=== PATIENT | female | born 1955 | race Two or more races ===

== ENCOUNTER 2018-04-11 12:17 | Inpatient (IN) | payer MEDICARE, MEDICAID ==
[~2018-04-11] VITALS: Ht 147.3 cm; Wt 40.6 kg
[~2018-04-11 12:17] MED LIST: CHOL200010 PO; ESOM40CA39 PO; FOLI1TAB6 PO; LEUC5TAB PO; MELO1TAB56 PO; METH2.5T3 PO; OXYC7.5T88; SULF-98 PO
[2018-04-11 13:03] LABS: Basophils # (auto) 0 uL; Eosinophils # (auto) 0 uL; Lymphocytes # (auto) 0.7 uL
[2018-04-11 13:05] LABS: Basophils % (auto) 0.1 % (0.0-2.0); Hematocrit 34.8 % (36.0-46.0); Hemoglobin 11.1 g/dL (12.2-16.2); Lymphocytes % (auto) 4.5 % (10.0-50.0); Mean Corpuscular Hemoglobin 24.4 pg (28.0-32.0); Mean Corpuscular Hgb Conc. 31.9 g/dL (32.0-36.0); Mean Corpuscular Volume 76.4 fL (80.0-100.0); Monocytes # (auto) 0.7 uL; Monocytes % (auto) 4.6 % (0.0-12.0); Neutrophils # (auto) 13.9 uL; Neutrophils % (auto) 90.8 % (37.0-80.0); Platelet Count (auto) 413 10^3/uL (140-450); Red Blood Cells 4.56 10^6/uL (4.0-5.20); Red Cell Distribution Width 17.4 % (11.8-14.3); White Blood Cell 15.3 10^3/uL (4.4-10.8)
[2018-04-11] MEDS ORDERED: SODIUM CHLORIDE 0.9% 1,000 ML IV ONE (13:06)
[2018-04-11 13:26] LABS: Albumin 2.6 g/dL (3.4-5.0); BUN/Creatinine Ratio 40.7; Calcium 7.9 mg/dL (8.5-10.1); Potassium 3.8 mmol/L (3.5-5.1)
[2018-04-11 13:29] LABS: Bilirubin, Total 0.3 mg/dL (0.2-1.0); Total Protein 7.5 g/dL (6.4-8.2)
[2018-04-11] MEDS ORDERED: metroNIDAZOLE 500MG/100ML 100 ML IV ONE (14:45)
[2018-04-11] MEDS ORDERED: PIPERACILLIN-TAZOB 2.25GM 50 ML IV ONE (14:45)
[2018-04-11] MEDS ORDERED: NITROGLYCERIN 0.4 MG SL TAB SL PRN (15:00)
[2018-04-11] MEDS ORDERED: DEXTROSE (50%) 50ML SYRG IV PRN (15:00)
[2018-04-11] MEDS ORDERED: LORazepam 0.5 MG TAB PO PRN (15:00)
[2018-04-11] MEDS ORDERED: TEMAZEPAM 15 MG CAP PO PRN (15:00)
[2018-04-11] MEDS ORDERED: cefTRIAXone 1GM/10ml IVPUSH 10 ML IV ONE (15:00)
[2018-04-11] MEDS ORDERED: ALBUTEROL SULF 2.5 MG/0.5ML(0.5%) NEB SOLN NEB PRN (15:00)
[2018-04-11] MEDS ORDERED: ACETAMINOPHEN 500 MG TAB PO PRN (15:00)
[2018-04-11] MEDS ORDERED: HYDROcodone-ACET 5/325MG TAB PO PRN (15:00)
[2018-04-11] MEDS ORDERED: MORPHINE SULF INJ 2 MG/ML SYRINGE 1ML IV PRN ×2 (15:00)
[2018-04-11] MEDS: SODIUM CHLORIDE 0.9% 1,000 ML IV SCH (15:49)
[2018-04-11] MEDS: ACCU-CHEK COMFORT CURVE STRIP VI SCH ×2 (15:49→20:25)
[2018-04-11] MEDS ORDERED: AZITHROMYCIN 500MG/ 250ML 250 ML IV SCH (16:00)
[2018-04-11 17:00] VITALS: BP 125/52
[2018-04-11 17:25] VITALS: BP 182/74
[2018-04-11 18:00] VITALS: BP 125/52
[2018-04-11] MEDS ORDERED: AMLO5TAB2 PO (18:05)
[2018-04-11] MEDS ORDERED: PRE5T PO (18:05)
[2018-04-11] MEDS ORDERED: MULT-424 OR (18:05)
[2018-04-11] MEDS: IPRATROPIUM BROM 0.5 MG/2.5ML INH SOL NEB SCH (18:09)
[2018-04-11] MEDS: ALBUTEROL SULF 2.5 MG/0.5ML(0.5%) NEB SOLN NEB SCH (18:09)
[2018-04-11 22:00] VITALS: BP 148/78
[2018-04-11] MEDS ORDERED: SULFAMETHOX W/TRIMETH(800/160MG) DS TAB PO SCH (22:00)
[2018-04-11] MEDS: metroNIDAZOLE 500MG/100ML 100 ML IV SCH (22:02)
[2018-04-12] MEDS: IPRATROPIUM BROM 0.5 MG/2.5ML INH SOL NEB SCH ×4 (00:12→19:33)
[2018-04-12] MEDS: ALBUTEROL SULF 2.5 MG/0.5ML(0.5%) NEB SOLN NEB SCH ×4 (00:12→19:33)
[2018-04-12] MEDS: SODIUM CHLORIDE 0.9% 1,000 ML IV SCH ×3 (01:11→20:56)
[2018-04-12] MEDS: HYDROcodone-ACET 10/325MG TAB PO PRN ×2 (02:13→16:38)
[2018-04-12] MEDS: ACCU-CHEK COMFORT CURVE STRIP VI SCH ×6 (04:00→20:00)
[2018-04-12] MEDS: metroNIDAZOLE 500MG/100ML 100 ML IV SCH ×3 (04:20→18:26)
[2018-04-12 05:00] VITALS: BP 116/56
[2018-04-12 06:31] LABS: Basophils # (auto) 0 uL; Lymphocytes # (auto) 0.6 uL; Monocytes # (auto) 0.7 uL; Neutrophils # (auto) 8.6 uL; Red Cell Distribution Width 17.1 % (11.8-14.3)
[2018-04-12 06:33] LABS: Basophils % (auto) 0.3 % (0.0-2.0); Eosinophils # (auto) 0.1 uL; Eosinophils % (auto) 0.6 % (0.0-7.0); Hematocrit 30.2 % (36.0-46.0); Hemoglobin 9.9 g/dL (12.2-16.2); Lymphocytes % (auto) 6.1 % (10.0-50.0); Mean Corpuscular Hemoglobin 25.2 pg (28.0-32.0); Mean Corpuscular Hgb Conc. 32.9 g/dL (32.0-36.0); Mean Corpuscular Volume 76.6 fL (80.0-100.0); Monocytes % (auto) 7.1 % (0.0-12.0); Neutrophils % (auto) 85.9 % (37.0-80.0); Platelet Count (auto) 349 10^3/uL (140-450); Red Blood Cells 3.94 10^6/uL (4.0-5.20)
[2018-04-12 07:03] LABS: Alanine Aminotransferase 12 U/L (13-56); Alkaline Phosphatase 53 U/L (45-117); Anion Gap 11 (5-15); Aspartate Aminotransferase 17 U/L (15-37); BUN/Creatinine Ratio 46.7; Bilirubin, Total 0.4 mg/dL (0.2-1.0); Blood Urea Nitrogen 7 mg/dL (7-18); Calcium 7.3 mg/dL (8.5-10.1); Carbon Dioxide 20 mmol/L (21-32); Chloride 107 mmol/L (98-107); GFR African American 649 mL/min; GFR Non-African American 537 mL/min; Glucose 76 mg/dL (74-106); Sodium 138 mmol/L (136-145); Total Protein 5.8 g/dL (6.4-8.2)
[2018-04-12 07:13] LABS: Potassium 2.9 mmol/L (3.5-5.1)
[2018-04-12] MEDS ORDERED: POTASSIUM CHL 10% (20 MEQ/15ML) 15ml ORAL SOLN PO ONE (07:45)
[2018-04-12 08:00] VITALS: BP 113/60
[2018-04-12] MEDS: cefTRIAXone 1GM/10ml IVPUSH 10 ML IV SCH (08:52)
[2018-04-12] MEDS: PROMETHAZINE HCL 25 MG/ML 1ML IV PRN (09:05)
[2018-04-12] MEDS: AZITHROMYCIN 500MG/ 250ML 250 ML IV SCH (09:30)
[2018-04-12] MEDS: ENOXAPARIN SOD 40 MG/0.4 ML SYRINGE SC SCH ×2 (09:31→10:00)
[2018-04-12] MEDS: PANTOPRAZOLE 40 MG TAB PO SCH (09:31)
[2018-04-12 12:00] VITALS: BP 113/64
[2018-04-12 12:57] LABS: Urine Bacteria NONE SEEN /hpf (None Seen); Urine Blood Negative /uL (Negative); Urine Mucus FEW (None Seen); Urine Specific Gravity 1.011 (1.001-1.035); Urine WBC 7 /hpf (0 - 5)
[2018-04-12 17:00] VITALS: BP 137/65
[2018-04-12 22:06] VITALS: BP 132/93
[2018-04-13] MEDS: metroNIDAZOLE 500MG/100ML 100 ML IV SCH ×4 (00:16→18:00)
[2018-04-13] MEDS: ACCU-CHEK COMFORT CURVE STRIP VI SCH ×6 (03:53→20:00)
[2018-04-13 05:18] VITALS: BP 139/71
[2018-04-13 06:41] LABS: Basophils # (auto) 0 uL; Basophils % (auto) 0.2 % (0.0-2.0); Eosinophils # (auto) 0.1 uL; Eosinophils % (auto) 0.6 % (0.0-7.0); Hemoglobin 8.7 g/dL (12.2-16.2); Lymphocytes # (auto) 0.4 uL; Monocytes # (auto) 0.5 uL; Neutrophils # (auto) 8.4 uL; Red Cell Distribution Width 17.4 % (11.8-14.3)
[2018-04-13 06:43] LABS: Hematocrit 26.8 % (36.0-46.0); Lymphocytes % (auto) 4.7 % (10.0-50.0); Mean Corpuscular Hemoglobin 25.3 pg (28.0-32.0); Mean Corpuscular Hgb Conc. 32.6 g/dL (32.0-36.0); Mean Corpuscular Volume 77.7 fL (80.0-100.0); Monocytes % (auto) 5.2 % (0.0-12.0); Neutrophils % (auto) 89.3 % (37.0-80.0); Platelet Count (auto) 320 10^3/uL (140-450); Red Blood Cells 3.45 10^6/uL (4.0-5.20); White Blood Cell 9.4 10^3/uL (4.4-10.8)
[2018-04-13] MEDS: SODIUM CHLORIDE 0.9% 1,000 ML IV SCH ×2 (06:53→16:59)
[2018-04-13 06:58] LABS: Anion Gap 10 (5-15); Blood Urea Nitrogen 1 mg/dL (7-18); Carbon Dioxide 19 mmol/L (21-32); Chloride 111 mmol/L (98-107); GFR African American 466 mL/min; Glucose 154 mg/dL (74-106); Sodium 140 mmol/L (136-145)
[2018-04-13 06:59] LABS: Albumin 1.6 g/dL (3.4-5.0); Alkaline Phosphatase 50 U/L (45-117); Bilirubin, Total 0.2 mg/dL (0.2-1.0); Calcium 6.1 mg/dL (8.5-10.1); GFR Non-African American 385 mL/min; Total Protein 4.8 g/dL (6.4-8.2)
[2018-04-13 07:07] LABS: Aspartate Aminotransferase 6 U/L (15-37)
[2018-04-13] MEDS: ALBUTEROL SULF 2.5 MG/0.5ML(0.5%) NEB SOLN NEB SCH ×4 (07:12→19:00)
[2018-04-13] MEDS: IPRATROPIUM BROM 0.5 MG/2.5ML INH SOL NEB SCH ×4 (07:12→19:00)
[2018-04-13 07:24] LABS: Alanine Aminotransferase < 6 U/L (13-56); Potassium 2.5 mmol/L (3.5-5.1)
[2018-04-13 08:37] VITALS: BP 130/89
[2018-04-13] MEDS: cefTRIAXone 1GM/10ml IVPUSH 10 ML IV SCH (09:00)
[2018-04-13] MEDS: ENOXAPARIN SOD 40 MG/0.4 ML SYRINGE SC SCH (10:00)
[2018-04-13] MEDS: PANTOPRAZOLE 40 MG TAB PO SCH (10:00)
[2018-04-13] MEDS: AZITHROMYCIN 500MG/ 250ML 250 ML IV SCH (10:00)
[2018-04-13] MEDS ORDERED: POTASSIUM CHL 10% (20 MEQ/15ML) 15ml ORAL SOLN PO ONE (10:30)
[2018-04-13] MEDS: HYDROcodone-ACET 10/325MG TAB PO PRN (10:30)
[2018-04-13] MEDS: VANCOMYCIN HCL 125MG/5ML ORAL SOL PO SCH ×2 (12:00→18:00)
[2018-04-13] MEDS: BOOST PLUS 8 ounce PO SCH ×2 (12:00→18:00)
[2018-04-13 13:00] VITALS: BP 130/89
[2018-04-13] MEDS ORDERED: MULTIPLE VITAMINS W/ MINERALS TAB PO SCH (16:00)
[2018-04-13] MEDS: MULTIPLE VITAMINS W/ MINERALS TAB PO SCH (18:00)
[2018-04-13] MEDS: PRO-STAT 64 30ML PO SCH (18:00)
[2018-04-13 22:00] VITALS: BP 144/78
[2018-04-13] MEDS: ASCORBIC ACID 500 MG TAB PO SCH (23:07)
[2018-04-13] MEDS: POTASSIUM CHL 10% (20 MEQ/15ML) 15ml ORAL SOLN PO SCH (23:07)
[2018-04-14] VITALS (7 sets, daily range): BP systolic 104–149; BP diastolic 50–74
[2018-04-14] MEDS: HYDROcodone-ACET 10/325MG TAB PO PRN ×3 (00:23→18:30)
[2018-04-14] MEDS: VANCOMYCIN HCL 125MG/5ML ORAL SOL PO SCH ×2 (00:24→06:32)
[2018-04-14] MEDS: metroNIDAZOLE 500MG/100ML 100 ML IV SCH ×4 (00:24→18:14)
[2018-04-14] MEDS: IPRATROPIUM BROM 0.5 MG/2.5ML INH SOL NEB SCH ×4 (00:51→18:51)
[2018-04-14] MEDS: ALBUTEROL SULF 2.5 MG/0.5ML(0.5%) NEB SOLN NEB SCH ×4 (00:51→18:52)
[2018-04-14] MEDS: SODIUM CHLORIDE 0.9% 1,000 ML IV SCH ×2 (02:53→13:26)
[2018-04-14] MEDS: ACCU-CHEK COMFORT CURVE STRIP VI SCH ×6 (04:00→20:00)
[2018-04-14] MEDS ORDERED: ETOMIDATE (2MG/ML) 20ML VIAL IV ONE (05:26)
[2018-04-14] MEDS ORDERED: ROCURONIUM 10MG/ML 10ML VIAL IV ONE (05:27)
[2018-04-14] MEDS ORDERED: SUCCINYLCHOLINE CHLORIDE 20 MG/ML 10ML VIAL IV ONE (05:27)
[2018-04-14 05:33] LABS: Basophils # (auto) 0 uL; Eosinophils # (auto) 0.1 uL; Mean Corpuscular Hgb Conc. 33.5 g/dL (32.0-36.0); Monocytes # (auto) 0.4 uL
[2018-04-14 05:35] LABS: Basophils % (auto) 0.2 % (0.0-2.0); Hematocrit 30.3 % (36.0-46.0); Hemoglobin 10.2 g/dL (12.2-16.2); Lymphocytes # (auto) 0.6 uL; Lymphocytes % (auto) 9.4 % (10.0-50.0); Mean Corpuscular Hemoglobin 25.6 pg (28.0-32.0); Mean Corpuscular Volume 76.5 fL (80.0-100.0); Monocytes % (auto) 6.6 % (0.0-12.0); Neutrophils # (auto) 5.6 uL; Neutrophils % (auto) 82.8 % (37.0-80.0); Platelet Count (auto) 379 10^3/uL (140-450); Red Blood Cells 3.96 10^6/uL (4.0-5.20); Red Cell Distribution Width 17.2 % (11.8-14.3); White Blood Cell 6.7 10^3/uL (4.4-10.8)
[2018-04-14 05:57] LABS: Bilirubin, Total 0.2 mg/dL (0.2-1.0); Calcium 7.5 mg/dL (8.5-10.1); Potassium 3.9 mmol/L (3.5-5.1); Total Protein 5.8 g/dL (6.4-8.2)
[2018-04-14] MEDS: BOOST PLUS 8 ounce PO SCH ×3 (08:11→18:14)
[2018-04-14] MEDS: PRO-STAT 64 30ML PO SCH ×2 (08:11→18:13)
[2018-04-14] MEDS: cefTRIAXone 1GM/10ml IVPUSH 10 ML IV SCH (08:12)
[2018-04-14] MEDS: ENOXAPARIN SOD 40 MG/0.4 ML SYRINGE SC SCH ×2 (10:00→10:46)
[2018-04-14] MEDS: POTASSIUM CHL 10% (20 MEQ/15ML) 15ml ORAL SOLN PO SCH ×2 (10:44→22:50)
[2018-04-14] MEDS: AZITHROMYCIN 500MG/ 250ML 250 ML IV SCH (10:44)
[2018-04-14] MEDS: MULTIPLE VITAMINS W/ MINERALS TAB PO SCH (10:45)
[2018-04-14] MEDS: ASCORBIC ACID 500 MG TAB PO SCH ×2 (10:45→22:28)
[2018-04-14] MEDS: PANTOPRAZOLE 40 MG TAB PO SCH (10:45)
[2018-04-14 13:58] LABS: INR 1.3 (0.9-1.15); Prothrombin Time 13.7 sec (9.27-12.13)
[2018-04-14] MEDS: CLINDAMYCIN 300MG IV 50 ML IV SCH ×2 (16:53→22:28)
[2018-04-14] MEDS ORDERED: LIDOCAINE 1% (LOCAL ANESTH.) PF 5ml SDV ID ONE (17:15)
[2018-04-14] MEDS: SODIUM CHLOR 0.9% PF (SALINE LOCK) 10ML VIAL/SYR IV SCH (22:50)
[2018-04-15] MEDS: IPRATROPIUM BROM 0.5 MG/2.5ML INH SOL NEB SCH ×4 (00:34→18:55)
[2018-04-15] MEDS: ALBUTEROL SULF 2.5 MG/0.5ML(0.5%) NEB SOLN NEB SCH ×4 (00:34→18:55)
[2018-04-15] MEDS: metroNIDAZOLE 500MG/100ML 100 ML IV SCH ×4 (00:58→18:11)
[2018-04-15] MEDS: SODIUM CHLORIDE 0.9% 1,000 ML IV SCH ×3 (00:58→19:11)
[2018-04-15] MEDS: ACCU-CHEK COMFORT CURVE STRIP VI SCH ×7 (04:00→23:45)
[2018-04-15 05:26] VITALS: BP 107/53
[2018-04-15] MEDS: CLINDAMYCIN 300MG IV 50 ML IV SCH ×3 (06:11→22:45)
[2018-04-15 07:19] LABS: Basophils # (auto) 0 uL; Eosinophils # (auto) 0.2 uL; Hemoglobin 9.2 g/dL (12.2-16.2); Lymphocytes # (auto) 0.8 uL; Mean Corpuscular Hgb Conc. 32.2 g/dL (32.0-36.0); White Blood Cell 7.2 10^3/uL (4.4-10.8)
[2018-04-15 07:21] LABS: Basophils % (auto) 0.3 % (0.0-2.0); Eosinophils % (auto) 2.1 % (0.0-7.0); Hematocrit 28.4 % (36.0-46.0); Lymphocytes % (auto) 11.2 % (10.0-50.0); Mean Corpuscular Hemoglobin 24.7 pg (28.0-32.0); Mean Corpuscular Volume 76.5 fL (80.0-100.0); Monocytes # (auto) 0.7 uL; Monocytes % (auto) 9.3 % (0.0-12.0); Neutrophils # (auto) 5.5 uL; Neutrophils % (auto) 77.1 % (37.0-80.0); Nucleated Red Blood Cells % 0.1 %; Platelet Count (auto) 381 10^3/uL (140-450); Red Blood Cells 3.71 10^6/uL (4.0-5.20); Red Cell Distribution Width 17.3 % (11.8-14.3)
[2018-04-15 07:22] LABS: Alanine Aminotransferase 18 U/L (13-56); Alkaline Phosphatase 63 U/L (45-117); Anion Gap 8 (5-15); Aspartate Aminotransferase 26 U/L (15-37); BUN/Creatinine Ratio 26.7; Bilirubin, Total 0.2 mg/dL (0.2-1.0); Blood Urea Nitrogen 4 mg/dL (7-18); Calcium 7.7 mg/dL (8.5-10.1); Carbon Dioxide 25 mmol/L (21-32); Chloride 105 mmol/L (98-107); GFR African American 649 mL/min; GFR Non-African American 537 mL/min; Glucose 83 mg/dL (74-106); Potassium 3.5 mmol/L (3.5-5.1); Sodium 138 mmol/L (136-145); Total Protein 5.8 g/dL (6.4-8.2)
[2018-04-15 08:00] VITALS: BP 125/69
[2018-04-15 09:00] VITALS: BP 125/69
[2018-04-15] MEDS: BOOST PLUS 8 ounce PO SCH ×3 (09:11→18:12)
[2018-04-15] MEDS: PRO-STAT 64 30ML PO SCH ×2 (09:12→18:12)
[2018-04-15] MEDS: cefTRIAXone 1GM/10ml IVPUSH 10 ML IV SCH (09:13)
[2018-04-15] MEDS: MULTIPLE VITAMINS W/ MINERALS TAB PO SCH (09:45)
[2018-04-15] MEDS: HYDROcodone-ACET 10/325MG TAB PO PRN ×2 (09:45→22:46)
[2018-04-15] MEDS: ASCORBIC ACID 500 MG TAB PO SCH ×2 (10:00→22:46)
[2018-04-15] MEDS: ENOXAPARIN SOD 40 MG/0.4 ML SYRINGE SC SCH (10:00)
[2018-04-15] MEDS: PANTOPRAZOLE 40 MG TAB PO SCH (10:19)
[2018-04-15] MEDS: SODIUM CHLOR 0.9% PF (SALINE LOCK) 10ML VIAL/SYR IV SCH ×2 (10:20→22:47)
[2018-04-15] MEDS: POTASSIUM CHL 10% (20 MEQ/15ML) 15ml ORAL SOLN PO SCH ×2 (10:20→22:46)
[2018-04-15 13:00] VITALS: BP 106/56
[2018-04-15] MEDS ORDERED: VANCOMYCIN PER PHARMACY 0 MG IV SCH (14:30)
[2018-04-15] MEDS ORDERED: VANCOMYCIN 1GM/250ML 250 ML IV ONE (15:00)
[2018-04-15 17:00] VITALS: BP 113/50
[2018-04-15] MEDS: PROMETHAZINE HCL 25 MG/ML 1ML IV PRN (20:18)
[2018-04-16] VITALS: BP 129/58
[2018-04-16] MEDS: metroNIDAZOLE 500MG/100ML 100 ML IV SCH ×5 (00:12→23:49)
[2018-04-16] MEDS: ALBUTEROL SULF 2.5 MG/0.5ML(0.5%) NEB SOLN NEB SCH ×4 (00:54→19:02)
[2018-04-16] MEDS: IPRATROPIUM BROM 0.5 MG/2.5ML INH SOL NEB SCH ×4 (00:54→19:02)
[2018-04-16] MEDS ORDERED: VANCOMYCIN 1GM/250ML 0 ML IV ONE (02:52)
[2018-04-16] MEDS: VANCOMYCIN 500 MG in D5W 5% 100 ML IV SCH ×2 (03:05→15:32)
[2018-04-16] MEDS: ACCU-CHEK COMFORT CURVE STRIP VI SCH ×2 (04:00→08:00)
[2018-04-16 04:17] VITALS: BP 101/58
[2018-04-16] MEDS: SODIUM CHLORIDE 0.9% 1,000 ML IV SCH ×2 (05:21→15:33)
[2018-04-16] MEDS: CLINDAMYCIN 300MG IV 50 ML IV SCH (05:21)
[2018-04-16 05:41] LABS: Basophils # (auto) 0 uL; Basophils % (auto) 0.1 % (0.0-2.0); Eosinophils # (auto) 0 uL; Hemoglobin 10.2 g/dL (12.2-16.2); Red Cell Distribution Width 17.3 % (11.8-14.3)
[2018-04-16 05:44] LABS: Hematocrit 30.9 % (36.0-46.0); Lymphocytes # (auto) 0.6 uL; Lymphocytes % (auto) 3.5 % (10.0-50.0); Mean Corpuscular Hemoglobin 25.3 pg (28.0-32.0); Mean Corpuscular Volume 76.5 fL (80.0-100.0); Monocytes # (auto) 0.7 uL; Neutrophils # (auto) 15.3 uL; Neutrophils % (auto) 92.4 % (37.0-80.0); Platelet Count (auto) 358 10^3/uL (140-450); Red Blood Cells 4.04 10^6/uL (4.0-5.20); White Blood Cell 16.5 10^3/uL (4.4-10.8)
[2018-04-16 06:00] LABS: Calcium 7.2 mg/dL (8.5-10.1); Potassium 5.3 mmol/L (3.5-5.1)
[2018-04-16 08:00] VITALS: BP 96/56
[2018-04-16] MEDS: BOOST PLUS 8 ounce PO SCH ×3 (08:00→18:12)
[2018-04-16] MEDS: PRO-STAT 64 30ML PO SCH ×2 (08:00→18:12)
[2018-04-16] MEDS: POTASSIUM CHL 10% (20 MEQ/15ML) 15ml ORAL SOLN PO SCH (10:00)
[2018-04-16] MEDS: cefTRIAXone 1GM/10ml IVPUSH 10 ML IV SCH ×2 (10:07→10:16)
[2018-04-16] MEDS: ASCORBIC ACID 500 MG TAB PO SCH ×2 (10:16→21:29)
[2018-04-16] MEDS: MULTIPLE VITAMINS W/ MINERALS TAB PO SCH (10:16)
[2018-04-16] MEDS: SODIUM CHLOR 0.9% PF (SALINE LOCK) 10ML VIAL/SYR IV SCH ×2 (10:16→20:59)
[2018-04-16] MEDS: ENOXAPARIN SOD 40 MG/0.4 ML SYRINGE SC SCH (10:16)
[2018-04-16] MEDS: PANTOPRAZOLE 40 MG TAB PO SCH (10:17)
[2018-04-16 12:00] VITALS: BP 105/55
[2018-04-16 16:00] VITALS: BP 107/56
[2018-04-16] MEDS: HYDROcodone-ACET 10/325MG TAB PO PRN (18:11)
[2018-04-16 20:51] VITALS: BP 104/52
[2018-04-17] VITALS: BP 119/53
[2018-04-17] MEDS: IPRATROPIUM BROM 0.5 MG/2.5ML INH SOL NEB SCH ×3 (00:58→12:00)
[2018-04-17] MEDS: ALBUTEROL SULF 2.5 MG/0.5ML(0.5%) NEB SOLN NEB SCH ×3 (00:58→12:00)
[2018-04-17] MEDS: VANCOMYCIN 500 MG in D5W 5% 100 ML IV SCH ×2 (02:59→10:05)
[2018-04-17 04:00] VITALS: BP 114/56
[2018-04-17 04:56] LABS: Basophils # (auto) 0 uL; Eosinophils # (auto) 0.1 uL; Eosinophils % (auto) 1.4 % (0.0-7.0); Hemoglobin 8.5 g/dL (12.2-16.2); Lymphocytes # (auto) 0.9 uL
[2018-04-17 04:58] LABS: Basophils % (auto) 0.3 % (0.0-2.0); Hematocrit 25.8 % (36.0-46.0); Lymphocytes % (auto) 9.2 % (10.0-50.0); Mean Corpuscular Volume 75.9 fL (80.0-100.0); Monocytes # (auto) 0.7 uL; Neutrophils # (auto) 7.7 uL; Neutrophils % (auto) 82.1 % (37.0-80.0); Nucleated Red Blood Cells % 0.1 %; Platelet Count (auto) 332 10^3/uL (140-450); Red Cell Distribution Width 17.3 % (11.8-14.3); White Blood Cell 9.4 10^3/uL (4.4-10.8)
[2018-04-17 05:29] LABS: Albumin 1.9 g/dL (3.4-5.0); BUN/Creatinine Ratio 31.6; Bilirubin, Total 0.2 mg/dL (0.2-1.0); Calcium 7.4 mg/dL (8.5-10.1); Potassium 3.2 mmol/L (3.5-5.1); Total Protein 5.7 g/dL (6.4-8.2)
[2018-04-17] MEDS: metroNIDAZOLE 500MG/100ML 100 ML IV SCH ×2 (05:55→11:52)
[2018-04-17 08:00] VITALS: BP 133/62
[2018-04-17] MEDS: BOOST PLUS 8 ounce PO SCH ×2 (09:26→11:52)
[2018-04-17] MEDS: SODIUM CHLORIDE 0.9% 1,000 ML IV SCH ×2 (09:26→10:14)
[2018-04-17] MEDS: SODIUM CHLOR 0.9% PF (SALINE LOCK) 10ML VIAL/SYR IV SCH (09:27)
[2018-04-17] MEDS: PRO-STAT 64 30ML PO SCH (09:27)
[2018-04-17] MEDS: cefTRIAXone 1GM/10ml IVPUSH 10 ML IV SCH (09:57)
[2018-04-17] MEDS: MULTIPLE VITAMINS W/ MINERALS TAB PO SCH ×2 (10:00→10:04)
[2018-04-17] MEDS: PANTOPRAZOLE 40 MG TAB PO SCH ×2 (10:00→10:04)
[2018-04-17] MEDS: ASCORBIC ACID 500 MG TAB PO SCH ×2 (10:00→10:04)
[2018-04-17] MEDS: POTASSIUM CHL 10% (20 MEQ/15ML) 15ml ORAL SOLN PO SCH ×2 (10:00→10:04)
[2018-04-17] MEDS: ENOXAPARIN SOD 40 MG/0.4 ML SYRINGE SC SCH (10:00)
[2018-04-17 11:52] VITALS: BP 142/63
[2018-04-17 12:03] VITALS: BP 142/63
== END 2018-04-17 14:01 | disposition home health service (06) | DRG 871 ==
LOC: EDBD 12:17 → ER 12:19 → EDBD 12:20 → TELE 12:20 → TELE-WESTW 16:57 → DOU IN ICU 04-15 22:14
PROVIDERS: ADMIT Internal Medicine; ATTEND Family Medicine
PROC: 02HV33Z Insertion of Infusion Device into Superior Vena Cava, Percutaneous Approach (ICD-10-PCS; principal; 2018-04-14)
DX: A41.9 Sepsis, unspecified organism (principal); E43 Unspecified severe protein-calorie malnutrition; J18.9 Pneumonia, unspecified organism; A04.72 Enterocolitis due to Clostridium difficile, not specified as recurrent; R64 Cachexia; Z68.1 Body mass index [BMI] 19.9 or less, adult; N18.9 Chronic kidney disease, unspecified; I10 Essential (primary) hypertension; D63.8 Anemia in other chronic diseases classified elsewhere; N20.0 Calculus of kidney; L89.159 Pressure ulcer of sacral region, unspecified stage; L89.139 Pressure ulcer of right lower back, unspecified stage; B95.62 Methicillin resistant Staphylococcus aureus infection as the cause of diseases classified elsewhere; M16.0 Bilateral primary osteoarthritis of hip; M34.9 Systemic sclerosis, unspecified; Z82.49 Family history of ischemic heart disease and other diseases of the circulatory system; Z83.3 Family history of diabetes mellitus
CPT/HCPCS: 36415; 36569; 71045; 74176; 80048; 80053; 80202; 81001; 82270; 82378; 82962; 83036; 83605; 85025; 85610; 85652; 86141; 87040; 87045; 87077; 87081; 87086; 87186; 87205; 87493; 87899; 93005; 94640; 96361; 96365; 96367; 96368; 96375; J0330; J2543; J3490; J7060

== ENCOUNTER 2020-07-06 14:13 | Inpatient (IN) | payer MEDICARE, MEDICAID ==
[~2020-07-06] VITALS: Ht 137.2 cm; Wt 29.4 kg
[~2020-07-06 14:13] MED LIST changes: +AMLO5TAB15 PO; -FOLI1TAB6 PO; -LEUC5TAB PO; -METH2.5T3 PO; +MULT-424 OR; -OXYC7.5T88; +PRE5T PO
[2020-07-06 15:26] LABS: Albumin 2.8 g/dL (3.4-5.0); Calcium 8.2 mg/dL (8.5-10.1); Potassium 4.4 mmol/L (3.5-5.1)
[2020-07-06 15:29] LABS: BUN/Creatinine Ratio 38.5; Bilirubin, Total 0.5 mg/dL (0.2-1.0); Lactic Acid w/Reflex 2.2 mmol/L (0.4-2.0)
[2020-07-06] MEDS ORDERED: AZITHROMYCIN 500MG/ 250ML 250 ML IV ONE (15:30)
[2020-07-06] MEDS ORDERED: methylPREDNISolone SOD SUCC 125 MG/2 ML VL IV ONE (15:30)
[2020-07-06] MEDS ORDERED: ZINC SULFATE 220mg CAP or TAB PO ONE (15:30)
[2020-07-06] MEDS ORDERED: ASCORBIC ACID 500 MG TAB PO ONE (15:30)
[2020-07-06] MEDS ORDERED: cefTRIAXone 1GM/50ML D5W 50 ML IV ONE (15:45)
[2020-07-06 16:22] LABS: Basophils # (auto) 0 10 ^3/uL (0-0.2); Eosinophils # (auto) 0 10 ^3/uL (0-0.8); Hematocrit 31.1 % (36.0-46.0); Lymphocytes # (auto) 0.7 10 ^3/uL (0.4-5.4); Lymphocytes % (auto) 9.3 % (10.0-50.0); Mean Corpuscular Hemoglobin 25.8 pg (28.0-32.0); Monocytes # (auto) 0.5 10 ^3/uL (0-1.3); Nucleated Red Blood Cells % 0.3 %
[2020-07-06 16:25] LABS: Basophils % (auto) 0.2 % (0.0-2.0); Hemoglobin 10.1 g/dL (12.2-16.2); Mean Corpuscular Hgb Conc. 32.6 g/dL (32.0-36.0); Mean Corpuscular Volume 79.2 fL (80.0-100.0); Monocytes % (auto) 6.7 % (0.0-12.0); Neutrophils % (auto) 83.8 % (37.0-80.0); Platelet Count (auto) 339 10^3/uL (140-450); Red Blood Cells 3.93 10^6/uL (4.0-5.20); Red Cell Distribution Width 18.2 % (11.8-14.3); White Blood Cell 7.2 10^3/uL (4.4-10.8)
[2020-07-06] MEDS ORDERED: ACETAMINOPHEN 500 MG TAB PO PRN (17:00)
[2020-07-06] MEDS ORDERED: SODIUM CHLORIDE 0.9% 1,000 ML IV SCH (17:00)
[2020-07-06] MEDS ORDERED: NITROGLYCERIN 0.4 MG SL TAB SL PRN (17:00)
[2020-07-06] MEDS ORDERED: MORPHINE SULF INJ 2 MG/ML SYRINGE 1ML IV PRN (17:00)
[2020-07-06] MEDS ORDERED: LABETALOL HCL 5 MG/ML 4ML SYRINGE IV PRN (17:00)
[2020-07-06] MEDS ORDERED: DOCUSATE CALCIUM 240 MG CAP PO PRN (17:00)
[2020-07-06 18:15] VITALS: BP 106/57
--- NOTE | 2020-07-06 18:53 | NUR ---
MS admit from ER MARIAFIORDALIZA admitted to tele/MS tele #13 ST after SBAR received from [facility]; per Edpatricia patient has a wound consult pending for left lower extremity. Patient oriented to LORENA QUINONEZ, primary RN, unit, room, bed, and unit policies regarding patient care and visiting hours. Patient weighed by bedscale and encouraged to call if they need something. All questions and concerns addressed, patient verbalized understanding.
--- NOTE | 2020-07-06 18:55 | NUR ---
9 WOUND PHOTOS TAKEN. PATIENT TOLERATED WELL.
--- NOTE | 2020-07-06 19:16 | NUR ---
ENDORSED CARE TO NIGHT KATE BELTRAN
--- NOTE | 2020-07-06 19:30 | NUR ---
Opening Shift Note Received report from kb Craig RN. Assumed care of patient, awake and alert. No S/S of distress/SOB or pain. Saturating at g98% on 3LNC. Assisted patient in eating. Instructed on POC and to call for assist PRN, will continue to monitor for changes Q1hr and PRN. Bed placed in lowest position, bed alarm turned on and call light within reach.
[2020-07-06 20:00] VITALS: BP 114/68
[2020-07-06 21:01] LABS: CRP High Sensitivity 6.41 mg/dL (< 0.3)
[2020-07-06 22:16] VITALS: BP 114/68
--- NOTE | 2020-07-06 22:20 | NUR ---
Respiratory note: TITRATED FIO2 TO 3LNC AT THIS TIME
[2020-07-06] MEDS: LORazepam 0.5 MG TAB PO PRN (22:25)
--- NOTE | 2020-07-06 22:25 | NUR ---
Given Ativan as ordered for sleep per patient request. Will monitor.
[2020-07-06] MEDS: ALBUTEROL SULF HFA 90MCG INH 200DOSE IN SCH (22:27)
[2020-07-06] MEDS: BUDESONIDE (INHALATION) 180 MCG IH IN SCH (22:27)
--- NOTE | 2020-07-06 22:52 | NUR ---
Foam Dressing applied to right knee and sacrum for protection.
[2020-07-07 05:27] VITALS: BP 132/67
--- NOTE | 2020-07-07 05:44 | NUR ---
Patient is resting in bed with eyes closed, no distress noted and patient denies pain at this time.
[2020-07-07] MEDS: BUDESONIDE (INHALATION) 180 MCG IH IN SCH ×2 (06:55→22:27)
[2020-07-07] MEDS: ALBUTEROL SULF HFA 90MCG INH 200DOSE IN SCH ×3 (06:55→22:27)
[2020-07-07 07:27] LABS: Basophils # (auto) 0 10 ^3/uL (0-0.2); Eosinophils # (auto) 0 10 ^3/uL (0-0.8); Lymphocytes # (auto) 0.4 10 ^3/uL (0.4-5.4); Monocytes # (auto) 0.1 10 ^3/uL (0-1.3)
[2020-07-07 07:30] LABS: Basophils % (auto) 0.1 % (0.0-2.0); Hematocrit 32.6 % (36.0-46.0); Hemoglobin 10.5 g/dL (12.2-16.2); Lymphocytes % (auto) 10.9 % (10.0-50.0); Mean Corpuscular Hemoglobin 25.3 pg (28.0-32.0); Mean Corpuscular Hgb Conc. 32.3 g/dL (32.0-36.0); Mean Corpuscular Volume 78.4 fL (80.0-100.0); Monocytes % (auto) 1.4 % (0.0-12.0); Neutrophils # (auto) 3.6 10 ^3/uL (1.6-8.6); Neutrophils % (auto) 87.6 % (37.0-80.0); Nucleated Red Blood Cells % 0.1 %; Platelet Count (auto) 335 10^3/uL (140-450); Red Blood Cells 4.16 10^6/uL (4.0-5.20); Red Cell Distribution Width 17.9 % (11.8-14.3); White Blood Cell 4.1 10^3/uL (4.4-10.8)
[2020-07-07 07:46] LABS: Albumin 2.6 g/dL (3.4-5.0); Calcium 8.5 mg/dL (8.5-10.1); Potassium 4.2 mmol/L (3.5-5.1)
[2020-07-07 07:50] LABS: Bilirubin, Total 0.3 mg/dL (0.2-1.0); Total Protein 8.1 g/dL (6.4-8.2)
[2020-07-07 08:00] VITALS: BP 131/72
[2020-07-07] MEDS ORDERED: AZITHROMYCIN 500MG/ 250ML 125 ML IV SCH (10:00)
[2020-07-07] MEDS: ASCORBIC ACID 1,000 MG TAB PO SCH (10:00)
[2020-07-07] MEDS: ZINC SULFATE 220mg CAP or TAB PO SCH (10:00)
[2020-07-07] MEDS ORDERED: amLODIPine BESYLATE 5 MG TAB PO SCH (10:00)
[2020-07-07] MEDS ORDERED: ENOXAPARIN SOD 30 MG/0.3 ML SYRINGE SC SCH (10:00)
[2020-07-07] MEDS ORDERED: DEXTROSE (50%) 50ML SYRG IV PRN (10:15)
[2020-07-07] MEDS ORDERED: ENOXAPARIN SOD 30 MG/0.3 ML SYRINGE SC ONE (10:15)
[2020-07-07] MEDS ORDERED: DOXYCYCLINE 100 MG TAB/CAP PO ONE (10:15)
[2020-07-07] MEDS ORDERED: FUROSEMIDE 20 MG/2 ML VIAL IV ONE (10:15)
[2020-07-07] MEDS: PANTOPRAZOLE 40 MG/10 ML VIAL INJ IV SCH (10:20)
[2020-07-07] MEDS: CHOLECALCIFEROL (VITD3) 2,000 UNIT CAP PO SCH (10:33)
--- NOTE | 2020-07-07 11:34 | NUR ---
IN-HOUSE COVID SWAB COVID SWAB COLLECTED AND WALKED TO LAB BY ANIBAL. Addendum: 07/07/20 at 1435 by Kellie Rey RN COVID SWAB WALKED TO LAB BY RN. GEOVANNY AT 1434
[2020-07-07] MEDS: ACCU-CHEK COMFORT CURVE STRIP VI SCH ×3 (11:38→22:00)
[2020-07-07] MEDS: InsuLIN REG 1unit/0.01ml Soln (100units/ml) SC SCH ×3 (11:39→22:00)
[2020-07-07 12:00] VITALS: BP 113/60
--- NOTE | 2020-07-07 14:28 | NUR ---
WHEELCHAIR PATIENTS SISTER FIORDALIZA GOLD PICKED WHEELCHAIR AT PATIENTS BEDSIDE.
[2020-07-07 15:04] LABS: Alcohol, Urine < 3.0 mg/dL (0-10); Amphetamine Screen, Urine NEGATIVE (NEGATIVE); Barbiturate Scree,Urine NEGATIVE (NEGATIVE); Benzodiazephine Screen, Urine NEGATIVE (NEGATIVE); Cannabinoid Screen, Urine NEGATIVE (NEGATIVE); Cocaine Screen, Urine NEGATIVE (NEGATIVE); Opiate Scree,Urine NEGATIVE (NEGATIVE); Phencyclidine Screen, Urine NEGATIVE (NEGATIVE)
[2020-07-07 15:15] LABS: Urine Bacteria NONE SEEN /hpf (None Seen); Urine Blood Negative /uL (Negative); Urine Mucus FEW (None Seen); Urine Specific Gravity 1.006 (1.001-1.035); Urine WBC 1 /hpf (0 - 5)
[2020-07-07] MEDS: HYDROcodone-ACET 5/325MG TAB PO PRN (15:59)
--- NOTE | 2020-07-07 16:13 | NUR ---
CHEST CT PATIENT IS REFUSED TO SIGN CT CONSENT.
[2020-07-07 17:00] VITALS: BP 151/72
--- NOTE | 2020-07-07 18:09 | NUR ---
WOUND CARE NOTE: WOUND CONSULT ORDERED FOR PATIENT WITH LOW JANICE SCORE OF 12. PATIENT ADMITTED TO [facility] WITH DIAGNOSIS OF PNA. SHE IS COVID POSITIVE, IN COVID UNIT. PATIENT IS RESTING ON SPECIALTY AIR MATTRESS PREVENTATIVE. SHE IS IN NO STATED PAIN CURRENTLY. PATIENT HAS HISTORY WITH SCLERODERMA, AND IS BEDBOUND, MAX ASSIST FOR HER ADL'S, INCLUDING TURNING/REPOSITIONING. PATIENT VERY THIN, WEIGHTING ONLY 29 KG. AT THIS TIME, PATIENT IS NOTED TO HAVE NO OPEN WOUNDS. SHE HAS INTACT PINK COLLAGEN SCARS NOTED TO SACRUM/BUTTOCKS, BILATERAL ISCHIUM, SPINOUS PROCESS. OPTIFOAM GENTLE SACRAL DRESSING APPLIED PREVENTATIVE. BILATERAL LOWER LEGS ARE NOTED TO HAVE LIGHT BROWN SCALES, WITH RAISED, SOFT INTACT GROWTH TO THE LEFT ANTERIOR CAAL. NO NEED FOR DRESSINGS AT THIS POINT, LEFT OPEN TO AIR. NO OTHER SKIN INTEGRITY ISSUES NOTED AT THIS TIME. RECOMMEND: SPECIALTY AIR MATTRESS (PT. PLACED), FREQUENT TURN SCHEDULE Q2 HOURS, PRN CONDITION PERMITS, WITH PRESSURE REDISTRIBUTION USING PILLOWS/WEDGES, BID/PRN APPLICATION WITH MOISTURE BARRIER CREAM, OPTIFOAM GENTLE SACRAL DRESSING PREVENTATIVE, [place] FOAM BOOTS TO BILATERAL FEET/HEELS, DIETARY CONSULT, SKIN/WOUND CARE PLAN, CONTINUED MONITORING BY WOUND CARE TEAM. Addendum: 07/07/20 at 1814 by Tasha Beltran RN Amended: Links added.
--- NOTE | 2020-07-07 19:30 | NUR ---
Opening Shift Note Assumed care of patient, awake and alert. No S/S of distress/SOB or pain. Instructed on POC and to call for assist PRN, will continue to monitor for changes Q1hr and PRN.
--- NOTE | 2020-07-07 21:12 | NUR ---
PATIENT IS REFUSING LOVENOX, PT STATED THAT SHE HAD A BAD EXPERIENCE WITH THIS MEDICATION IN THE PAST. ATTEMPTED TO EDUCATE PT, BUT PATIENT REFUSED.
[2020-07-07 21:30] VITALS: BP 100/60
[2020-07-07] MEDS: ENOXAPARIN SOD 30 MG/0.3 ML SYRINGE SC SCH (22:00)
[2020-07-07] MEDS: DOXYCYCLINE 100 MG TAB/CAP PO SCH (22:01)
[2020-07-08] MEDS: HYDROcodone-ACET 5/325MG TAB PO PRN ×2 (00:58→20:11)
[2020-07-08 05:00] VITALS: BP 127/71
[2020-07-08] MEDS: InsuLIN REG 1unit/0.01ml Soln (100units/ml) SC SCH ×2 (06:36→11:30)
[2020-07-08] MEDS: ACCU-CHEK COMFORT CURVE STRIP VI SCH ×2 (06:36→11:30)
[2020-07-08 07:06] LABS: Basophils # (auto) 0 10 ^3/uL (0-0.2); Eosinophils # (auto) 0 10 ^3/uL (0-0.8); Hemoglobin 10.3 g/dL (12.2-16.2); Lymphocytes # (auto) 1.7 10 ^3/uL (0.4-5.4); Monocytes # (auto) 0.5 10 ^3/uL (0-1.3); Monocytes % (auto) 7.9 % (0.0-12.0); White Blood Cell 6.1 10^3/uL (4.4-10.8)
[2020-07-08 07:07] LABS: Basophils % (auto) 0.2 % (0.0-2.0); Eosinophils % (auto) 0.3 % (0.0-7.0); Lymphocytes % (auto) 28.5 % (10.0-50.0); Mean Corpuscular Hemoglobin 25.4 pg (28.0-32.0); Mean Corpuscular Hgb Conc. 32.1 g/dL (32.0-36.0); Mean Corpuscular Volume 78.9 fL (80.0-100.0); Neutrophils # (auto) 3.8 10 ^3/uL (1.6-8.6); Neutrophils % (auto) 63.1 % (37.0-80.0); Nucleated Red Blood Cells % 0.4 %; Platelet Count (auto) 359 10^3/uL (140-450); Red Blood Cells 4.05 10^6/uL (4.0-5.20); Red Cell Distribution Width 17.8 % (11.8-14.3)
[2020-07-08] MEDS: BUDESONIDE (INHALATION) 180 MCG IH IN SCH (07:14)
[2020-07-08] MEDS: ALBUTEROL SULF HFA 90MCG INH 200DOSE IN SCH (07:14)
[2020-07-08 07:21] LABS: Albumin 2.6 g/dL (3.4-5.0); Calcium 8.2 mg/dL (8.5-10.1); Magnesium 1.9 mg/dL (1.6-2.6); Potassium 3.8 mmol/L (3.5-5.1)
[2020-07-08 07:25] LABS: BUN/Creatinine Ratio 53.1; Bilirubin, Total 0.4 mg/dL (0.2-1.0)
--- NOTE | 2020-07-08 07:30 | NUR ---
ASSESSMENT: SKIN ASSESSMENT PERFORMED ON PATIENT, PATIENT HAS A SACRAL DRESSING. SKIN INTACT IN THAT AREA. PATIENT NOTED TO HAVE A LEFT CAAL SKIN TEAR, [place] BOOTS IN PLACE AND PATIENT LAYING ON SPECIALTY MATTRESS. PATIENT NOTED TO BE CONTRACTED IN UPPER EXTREMITIES. ALERT AND ORIENTED X4. NO S/S OF DISTRESS NOTED AT THIS TIME. WILL CONTINUE TO ROUND ON PATIENT.
--- NOTE | 2020-07-08 07:55 | NUR ---
PATIENT ASSISTED IN EATING BREAKFAST. THIS RN SAT PATIENT IN HIGH FOWLERS POSITION. AND ASSISTED PATIENT WITH BREAKFAST. PATIENT ATE ABOUT 60%. NO S/S OF ASPIRATION NOTED. PATIENT RESTING IN LOW FOWLERS AT 45%. WILL CONTINUE TO MONITOR.
[2020-07-08] MEDS: Ensure HIGH Protein Chocolate 8oz Bottle PO SCH ×3 (08:00→18:34)
--- NOTE | 2020-07-08 08:55 | NUR ---
ROUNDING: PATIENT HAD A MODERATE SIZED BM. THIS RN CLEANED PATIENT UP AND NEW LINEN AND CHUX PAD LAID DOWN. PATIENT NOW RESTING IN LOW FOWLERS. COMFORTABLE. WILL CONTINUE TO MONITOR.
[2020-07-08 09:02] VITALS: BP 152/118
[2020-07-08] MEDS: ENOXAPARIN SOD 30 MG/0.3 ML SYRINGE SC SCH (10:00)
[2020-07-08] MEDS ORDERED: FUROSEMIDE 20 MG/2 ML VIAL IV SCH (10:00)
[2020-07-08] MEDS ORDERED: DexAMETHasone SOD PHOS 10MG/1ML VIAL INJ IV SCH (10:00)
[2020-07-08] MEDS: ZINC SULFATE 220mg CAP or TAB PO SCH (10:01)
[2020-07-08] MEDS: PANTOPRAZOLE 40 MG/10 ML VIAL INJ IV SCH (10:01)
[2020-07-08] MEDS: DOXYCYCLINE 100 MG TAB/CAP PO SCH ×2 (10:02→21:55)
[2020-07-08] MEDS: CHOLECALCIFEROL (VITD3) 2,000 UNIT CAP PO SCH (10:02)
[2020-07-08] MEDS: ASCORBIC ACID 1,000 MG TAB PO SCH (10:02)
[2020-07-08 13:00] VITALS: BP 142/78
--- NOTE | 2020-07-08 13:10 | NUR ---
COVID SWAB COLLECTED BY THIS RN AND WALKED UP TO LAB BY TOMER DELONG.
[2020-07-08] MEDS ORDERED: MAGNESIUM SULFATE 1GM/100ML 100 ML IV ONE (14:30)
[2020-07-08] MEDS ORDERED: IPRATROPIUM BROM 0.5 MG/2.5ML INH SOL NEB PRN (14:30)
[2020-07-08] MEDS ORDERED: ALBUTEROL SULF 2.5 MG/0.5ML(0.5%) NEB SOLN NEB PRN (14:30)
--- NOTE | 2020-07-08 14:37 | NUR ---
Nutrition Assessment Notes Please refer to link for full assessment notes. Est Energy needs: 9426-6145 kcals (23-25 kcal/kgIBW of 54.5 kg) Est Protein needs: 44-55 gms/day (0.8-1.0 gm/kgIBW of 54.5 kg) Will continue to monitor and reassess prn. Addendum: 07/08/20 at [address] Amended: Links added.
--- NOTE | 2020-07-08 15:58 | NUR ---
PATIENT TRANSFERRED TO ROOM 220A WITH RN JESSICA, REPORT GIVEN. INFORMED PATIENT IS TO BE NPO FOR CT ANGIO THAT WILL BE DONE LATER TODAY. PATIENT IN NO S/S OF DISTRESS AT THIS TIME. PATIENT TRANSFERRED VIA BED WITH TELEMETRY MONITORING IN PLACE. CALLED TELE OFFICE AND CALLED CRYSTAL OF PATIENTS TRANSFER AND CALLED RADIOLOGY TO INFORM PATIENT HAS BEEN MOVED UNITS.
[2020-07-08 16:53] VITALS: BP 147/83
[2020-07-08] MEDS ORDERED: IOHEXOL 350 MG/ML 100ML IJ ONE (17:27)
[2020-07-08 22:00] VITALS: BP 129/66
[2020-07-09 05:00] VITALS: BP 146/94
[2020-07-09 08:53] VITALS: BP 135/74
[2020-07-09] MEDS: DOXYCYCLINE 100 MG TAB/CAP PO SCH ×2 (09:37→21:45)
[2020-07-09] MEDS: PANTOPRAZOLE 40 MG/10 ML VIAL INJ IV SCH (09:37)
[2020-07-09] MEDS: ENOXAPARIN SOD 30 MG/0.3 ML SYRINGE SC SCH (09:37)
[2020-07-09] MEDS: predniSONE 5 MG TAB PO SCH (09:38)
[2020-07-09] MEDS: MULTIPLE VITAMINS W/ MINERALS TAB PO SCH (09:38)
[2020-07-09] MEDS: Ensure HIGH Protein Chocolate 8oz Bottle PO SCH ×3 (09:39→18:03)
[2020-07-09] MEDS: HYDROcodone-ACET 5/325MG TAB PO PRN (09:51)
[2020-07-09] MEDS ORDERED: amLODIPine BESYLATE 5 MG TAB PO SCH (10:00)
[2020-07-09] MEDS: CHOLECALCIFEROL (VITD3) 2,000 UNIT CAP PO SCH (10:00)
[2020-07-09] MEDS: ASCORBIC ACID 1,000 MG TAB PO SCH (10:00)
[2020-07-09] MEDS ORDERED: POTASSIUM CHL 10 Meq TABLET PO ONE (11:30)
[2020-07-09] MEDS ORDERED: FUROSEMIDE 20 MG/2 ML VIAL IV ONE (11:30)
--- NOTE | 2020-07-09 11:30 | NUR ---
Respiratory note: PT ASSESSED FOR PRN MEDNEB. PT ON ROOM AIR POX 05%. PT IN NO DISTRESS AT THIS TIME. NO TX INDICATED. PT AWARE TO HAVE RT PAGED IF SOB.
[2020-07-09] MEDS: FAMOTIDINE 20 MG TAB PO SCH (12:10)
[2020-07-09 13:00] VITALS: BP 135/65
--- NOTE | 2020-07-09 14:37 | NUR ---
assessment Patient is a 65 year old female who is alert and oriented. Patient resides with her sister Kimberly and functions with assistance. Per patient she has [facility] agency [phone]. Patient has a scooter for home use. Patients PCP is Dr Castillo. Patient has a daily caregiver. Patient feels safe returning home on discharge. Patient has a consult for wheelchair, 3&1, and shower chair. Kait HERNANDEZ will satisfy order. Patient verbalized understanding and agreed to discharge plan home. Addendum: 07/09/20 at 1442 by Silvia BUSCH Amended: Links added.
--- NOTE | 2020-07-09 15:20 | NUR ---
D/C planning Per consult for a 3 in one commode and wheelchair. Faxed clinical information to [facility] [place]. Per Mala with [facility] [place] patient health plan will not cover both medical equipment they can only authorized the wheelchair. Per Mala they will deliver wheelchair to front lobby upon d/c day.
[2020-07-09 17:00] VITALS: BP 101/62
--- NOTE | 2020-07-09 17:15 | NUR ---
PT ASSISTED UP ON CHAIR.
--- NOTE | 2020-07-09 19:25 | NUR ---
Patient put back in bed from bedside chair. Linens changed at this time.
[2020-07-09] MEDS: CARVEDILOL 3.125 MG TAB PO SCH (21:45)
[2020-07-09 22:00] VITALS: BP 117/64
--- NOTE | 2020-07-09 23:01 | NUR ---
PT ASSESSED, AWAKE AND ALERT, NO SOB NOTED. SAT 97% ON RA, BUT PT DOES NOT WANT TO TAKE NC OFF BECAUSE SHE HAS AN ANXIETY WITHOUT IT.
[2020-07-09] MEDS: LORazepam 0.5 MG TAB PO PRN (23:42)
[2020-07-10 00:30] VITALS: BP 101/62
[2020-07-10 05:00] VITALS: BP 142/82
[2020-07-10 07:27] LABS: Potassium 3.4 mmol/L (3.5-5.1)
[2020-07-10 07:28] LABS: Calcium 8.6 mg/dL (8.5-10.1); Magnesium 2.1 mg/dL (1.6-2.6)
[2020-07-10 07:29] LABS: BUN/Creatinine Ratio 54.2
[2020-07-10] MEDS: Ensure HIGH Protein Chocolate 8oz Bottle PO SCH ×3 (08:00→18:00)
[2020-07-10] MEDS: HYDROcodone-ACET 5/325MG TAB PO PRN ×3 (08:53→22:57)
[2020-07-10 09:00] VITALS: BP 153/71
[2020-07-10] MEDS ORDERED: POTASSIUM CHL 20 Meq TABLET PO ONE (09:00)
[2020-07-10] MEDS ORDERED: FUROSEMIDE 20 MG/2 ML VIAL IV SCH (10:00)
[2020-07-10] MEDS ORDERED: POTASSIUM CHL 10 Meq TABLET PO SCH (10:00)
[2020-07-10] MEDS: MULTIPLE VITAMINS W/ MINERALS TAB PO SCH (11:18)
[2020-07-10] MEDS: FUROSEMIDE 40 MG/4 ML VIAL IV SCH (11:18)
[2020-07-10] MEDS: predniSONE 5 MG TAB PO SCH (11:18)
[2020-07-10] MEDS: ENOXAPARIN SOD 30 MG/0.3 ML SYRINGE SC SCH (11:19)
[2020-07-10] MEDS: FAMOTIDINE 20 MG TAB PO SCH (11:19)
[2020-07-10] MEDS: DOXYCYCLINE 100 MG TAB/CAP PO SCH ×2 (11:19→22:56)
[2020-07-10] MEDS: CARVEDILOL 3.125 MG TAB PO SCH ×2 (11:20→22:56)
--- NOTE | 2020-07-10 11:23 | NUR ---
re-assessment Per consult [facility] for safety, PT, medication management, vitals. Patient is on service with [facility]. MD order has been sent to [facility]. Per Nathalie service will resume 24 to 48 hours after discharge. Waiting on discharge now. Addendum: 07/10/20 at 1125 by Silvia Morales Amended: Links added.
[2020-07-10 13:12] VITALS: BP 109/66
[2020-07-10 16:50] VITALS: BP 113/69
--- NOTE | 2020-07-10 18:03 | NUR ---
PT ASSESSED FOR PRN MED NEB TX. SPO2 96% ON RA, HR 99. PT DENIES ANY RESPIRATORY DISTRESS. NO TX INDICATED. WILL CONTINUE TO MONITOR.
--- NOTE | 2020-07-10 19:34 | NUR ---
Opening Shift Note Assumed care of patient, awake and alert x 4 but total care. No S/S of distress/SOB. Bed is in lowest position and locked. Call light within reach. Board updated. Tele box number matches monitor and leads are in correct placement. Instructed on POC and to call for assist PRN, will continue to monitor for changes Q1hr and PRN.
[2020-07-10 22:37] VITALS: BP 113/64
[2020-07-11 05:30] VITALS: BP 120/70
[2020-07-11] MEDS: HYDROcodone-ACET 5/325MG TAB PO PRN ×2 (06:34→22:08)
[2020-07-11 06:41] LABS: Calcium 8.1 mg/dL (8.5-10.1)
--- NOTE | 2020-07-11 06:42 | NUR ---
Partial bed bath, complete linen change, and gown change performed. Patient tolerated well.
[2020-07-11 06:45] LABS: BUN/Creatinine Ratio 66.7
--- NOTE | 2020-07-11 07:30 | NUR ---
Opening Shift Note Assumed patient care from NOC RN. No signs of distress at this time, respirations even and unlabored.
[2020-07-11] MEDS: Ensure HIGH Protein Chocolate 8oz Bottle PO SCH ×3 (08:00→18:00)
[2020-07-11 09:00] VITALS: BP 152/74
[2020-07-11] MEDS: DOXYCYCLINE 100 MG TAB/CAP PO SCH ×2 (09:56→21:19)
[2020-07-11] MEDS: POTASSIUM CHL 10 Meq TABLET PO SCH (09:56)
[2020-07-11] MEDS: FAMOTIDINE 20 MG TAB PO SCH (09:56)
[2020-07-11] MEDS: MULTIPLE VITAMINS W/ MINERALS TAB PO SCH (09:57)
[2020-07-11] MEDS: FUROSEMIDE 40 MG/4 ML VIAL IV SCH (09:57)
[2020-07-11] MEDS: predniSONE 5 MG TAB PO SCH (09:57)
[2020-07-11] MEDS: CARVEDILOL 3.125 MG TAB PO SCH ×2 (09:57→21:19)
[2020-07-11] MEDS: ENOXAPARIN SOD 30 MG/0.3 ML SYRINGE SC SCH (10:33)
--- NOTE | 2020-07-11 11:11 | NUR ---
Nutrition Follow-up Notes Wt.: 29.4 kg Pt was sleeping with no family by bedside. per reocrds pt with pleural effusion. pt is currently on puree diet with ensure HP tid with adequate PO of >75% x 4 per RN doc Est Energy needs: 2409-6868 kcals (23-25 kcal/kgIBW of 54.5 kg), Est Protein needs: 44-55 gms/day (0.8-1.0 gm/kgIBW of 54.5 kg). Will continue to monitor and reassess prn. Labs: CA 8.1 L, ALB 2.6 L Skin: Joe scale 12, high risk, refer to wound report per RN doc GI: Pt had 1 BM today per dance hall hostess. PES: 1) Pt is emaciated aeb 54% IBW and BMI of 15.5 kg/m2 r/t pt with scleroderma, altered GI function 2) Altered nutrition related lab values aeb hypoglycemia, hypocalcemia, mod hypoalbuminemia r/t current medical condition Will continue to monitor PO intake, skin status, pertinent labs and weight trend. F/u in 3-5 days. Rec.: 1.) Continue to carefully monitor pt PO intake to meet at least 75% of meals.2) Continue with current plan of care
--- NOTE | 2020-07-11 12:00 | NUR ---
Respiratory note: PT ASSESSED FOR PRN MED NEB. PT FOUND ON ROOM AIR SPO2 98%, RR 20. PT IS IN NO DISTRESS AT THIS TIME. PRN MED NEB BEING DC'D DUE TO NO INDICATION FOR 72 HOURS.
[2020-07-11 13:00] VITALS: BP 107/55
--- NOTE | 2020-07-11 13:25 | NUR ---
Patient refuses Optifoam This RN had placed Optifoam to bony prominence in patient's back. Per patient the Optifoam causes her increased pain and she feels uncomfortable. Patient requesting to have Optifoam removed. Patient was explained that bony prominences in the back were reddened and she was at increased risk for developing pressure ulcers. Patient verbalizes understanding but continues to request removal, optifoam removed at this time.
--- NOTE | 2020-07-11 14:30 | NUR ---
Patient in wheelchair Patient assisted to wheelchair by PT at this time.
[2020-07-11 16:58] VITALS: BP 114/59
--- NOTE | 2020-07-11 20:00 | NUR ---
assumed care, pt. awake, repositioned pt. no c/o pain, no sob.
[2020-07-11 22:00] VITALS: BP 129/75
[2020-07-12 05:30] VITALS: BP 143/76
[2020-07-12 07:27] LABS: BUN/Creatinine Ratio 62.1; Calcium 8.8 mg/dL (8.5-10.1); Potassium 4.1 mmol/L (3.5-5.1)
--- NOTE | 2020-07-12 07:30 | NUR ---
Opening Shift Note Assumed care of patient, awake and alert x 4. No S/S of distress/SOB. Bed is in low and locked position, bed alarm on, side rails up x 2 and bulb call light within reach. Patient demonstrated ability to use call light when asked. Patient was positioned to the right side with pillows. Pillows are propped under the feet. Skin assessment showed optifoam on right knee to protect bony prominence, sacral eval shows healed pressure area as well as healed pressure area on right thigh. Patient has hyperpigmentation of the length of the spine. Instructed on POC and to call for assist PRN, will continue to monitor for changes Q1hr and PRN.
[2020-07-12] MEDS: Ensure HIGH Protein Chocolate 8oz Bottle PO SCH ×2 (08:10→12:00)
[2020-07-12 08:44] VITALS: BP 127/71
[2020-07-12] MEDS: FUROSEMIDE 40 MG/4 ML VIAL IV SCH (10:00)
[2020-07-12] MEDS: ENOXAPARIN SOD 30 MG/0.3 ML SYRINGE SC SCH (10:00)
[2020-07-12] MEDS: MULTIPLE VITAMINS W/ MINERALS TAB PO SCH (10:40)
[2020-07-12] MEDS: POTASSIUM CHL 10 Meq TABLET PO SCH (10:40)
[2020-07-12] MEDS: FAMOTIDINE 20 MG TAB PO SCH (10:41)
[2020-07-12] MEDS: DOXYCYCLINE 100 MG TAB/CAP PO SCH (10:41)
[2020-07-12] MEDS: predniSONE 5 MG TAB PO SCH (10:41)
[2020-07-12] MEDS: CARVEDILOL 3.125 MG TAB PO SCH (10:42)
[2020-07-12] MEDS ORDERED: HYDROcodone-ACET 10/325MG TAB PO ONE (10:45)
--- NOTE | 2020-07-12 11:00 | NUR ---
D/C director of quantitative research Norma advised me patient needs transportation home. Faxed transportation form request to [facility] for a 13:30 pickling grader time via [employer]. Per Thalia with [facility] transportation has been arranged with [employer] via [employer] with a 13:30 pickling grader time. Informed KATE Mendoza.
[2020-07-12] MEDS ORDERED: CAR3125T PO (11:53)
[2020-07-12] MEDS ORDERED: POTA-220 PO (11:53)
[2020-07-12] MEDS ORDERED: FURO1TAB31 PO (11:53)
[2020-07-12 12:57] VITALS: BP 106/56
[2020-07-12 13:00] VITALS: BP 106/56
== END 2020-07-12 13:54 | disposition home health service (06) | DRG 291 ==
LOC: ER 14:13 → TELE-EAST 14:14 → TELE-CENTR 07-08 16:05
PROVIDERS: ATTEND Internal Medicine
DX: I11.0 Hypertensive heart disease with heart failure (principal); J96.00 Acute respiratory failure, unspecified whether with hypoxia or hypercapnia; E43 Unspecified severe protein-calorie malnutrition; J18.9 Pneumonia, unspecified organism; E87.1 Hypo-osmolality and hyponatremia; Z68.1 Body mass index [BMI] 19.9 or less, adult; I50.33 Acute on chronic diastolic (congestive) heart failure; R73.9 Hyperglycemia, unspecified; K21.9 Gastro-esophageal reflux disease without esophagitis; E83.51 Hypocalcemia; M34.9 Systemic sclerosis, unspecified; M19.90 Unspecified osteoarthritis, unspecified site; D63.8 Anemia in other chronic diseases classified elsewhere; L89.90 Pressure ulcer of unspecified site, unspecified stage; I08.3 Combined rheumatic disorders of mitral, aortic and tricuspid valves; I27.20 Pulmonary hypertension, unspecified; M81.0 Age-related osteoporosis without current pathological fracture; R73.03 Prediabetes; M06.9 Rheumatoid arthritis, unspecified; Z20.828 Contact with and (suspected) exposure to other viral communicable diseases; Z82.49 Family history of ischemic heart disease and other diseases of the circulatory system; Z83.3 Family history of diabetes mellitus
CPT/HCPCS: 36415; 71045; 71275; 80048; 80053; 80061; 80307; 81001; 82728; 82962; 83036; 83605; 83615; 83735; 83880; 84443; 84484; 85025; 85379; 86141; 87040; 87426; 93306; 93970; 94640; 96365; 96366; 96368; 96375; C9113; G0378; J0696; J1100; J1815